=== PATIENT | female | born 1960 | race Caucasian/White ===

== ENCOUNTER 2019-09-19 06:57 | Outpatient (CLI) | payer BC, SELFPAY ==
[2019-09-19 07:46] LABS: Hemoglobin A1C 7.6 % (<5.7)
[2019-09-19 07:57] LABS: LDL Cholesterol Direct 55 mg/dL
[2019-09-19 08:10] LABS: Alanine Aminotransferase 21 U/L (4-35); Alkaline Phosphatase 97 U/L (38-126); Aspartate Amino Transferase 25 U/L (14-36); Bilirubin,Total 0.3 mg/dL (0.2-1.3); Blood Urea Nitrogen 15 mg/dL (7-17); Carbon Dioxide 29 mmol/L (22-30); Chloride 104 mmol/L (98-107); Cholesterol 123 mg/dL (0-200); Estimated Glomerular Filt Rate > 60; Glucose 47 mg/dL (65-105); HDL Direct 43 mg/dL; Potassium 3.9 mmol/L (3.4-5.0); Sodium 140 mmol/L (137-145); Triglycerides 72 mg/dL (<150)
[2019-09-19 08:14] LABS: Thyroid Stimulating Hormone 0.356 uIU/mL (0.465-4.680)
[2019-09-19 08:27] LABS: Creatinine Urine 75.3 mg/dL
[2019-09-19 08:36] LABS: MALB Creatinine Ratio < 8.0 mg/g (0-30); Microalbumin Urine Random < 6.0 mg/L (0-16.7)
[2019-09-19 08:42] LABS: Free T4 Free Thyroxine 1.57 ng/mL (0.78-2.19)
[2019-09-24 06:12] LABS: Triiodothyronine T3 Free 2.8 pg/mL (2.3-4.2)
== END 2019-09-19 06:58 | disposition home or self-care (01) ==
PROVIDERS: PCP Family Medicine; Visit Provider Internal Medicine Endocrinology, Diabetes & Metabolism
DX: E11.319 Type 2 diabetes mellitus with unspecified diabetic retinopathy without macular edema (principal); E03.9 Hypothyroidism, unspecified; E78.5 Hyperlipidemia, unspecified
CPT/HCPCS: 36415; 80053; 80061; 82043; 83036; 84439; 84443; 84481